=== PATIENT | male | born 1950 | race Caucasian/White ===

== ENCOUNTER → 2019-09-19 | Outpatient (CLI) | payer OTHER ==
[~2019-09-19] MED LIST: COLACE50 MG PO; COMPAZINE 5MG TA5 MG PO; COUMADIN; COUMADIN 5MG5 MG/TAB PO; COUMADIN 77.5 MG/TAB PO; FERROUS SU325 MG/TAB PO; LIORESAL20 MG PO; LOPRESSOR 225 MG/TAB PO; MAGIC MOUTH PO; METOPROLOL SUCC25 MG PO; NEXIUM 40MG40 MG PO; NORCOELIX PO; PRILOSEC10 MG PO; PROZAC 20MG20 MG PO; TYLENOL 500MG500 MG PO; VALIUM 5MG T5 MG/TAB PO; VIT B-12; VITAMIN D2000 I1 PO; XANAX 0.5MG0.5 MG PO; ZOFRAN8 MG PO
[2019-09-19 12:39] LABS: INR 2.3 (0.8-3.0)
== END ==
LOC: COL.LAB 12:17
DX: Z95.2 Presence of prosthetic heart valve (principal)

== ENCOUNTER 2022-04-28 10:40 | Observation (INO) | payer OTHER ==
[~2022-04-28] VITALS: Ht 175.3 cm; Wt 58.3 kg
[2022-04-28 12:25] LABS: BASO # 0.1 K/mm3 (0.0-0.2); BASO % 1.2 % (0.0-2.0); EOS # 0.3 K/mm3 (0.0-0.7); EOS % 3.2 % (0.0-4.0); HEMATOCRIT 40.4 % (42.0-52.0); HEMOGLOBIN 13.1 g/dl (13.5-18.0); INR 1.3 (0.8-3.0); LYMPH # 1.4 K/mm3 (1.2-3.4); LYMPH % 18.4 % (20.0-51.0); MEAN CELL VOLUME 93 fl (80.0-100.0); MEAN CORPUSCULAR HEMOGLOBIN 30 pg (27-31); MEAN CORPUSCULAR HGB CONC 32 g/dl (33.0-37.0); MEAN PLATELET VOLUME 9.6 fl (7.4-10.4); MONO # 0.9 K/mm3 (0.1-0.6); MONO % 11.7 % (1.7-9.3); PLATELET COUNT 178 K/mm3 (130-400); PROTHROMBIN TIME 15.4 SECONDS (9.7-12.8); RED BLOOD COUNT 4.35 M/mm3 (4.20-5.60); REDCELL DISTRIBUTION WIDTH-CV 13.5 % (11.5-14.5)
[2022-04-28 12:34] LABS: CALCIUM 9.6 mg/dL (8.4-10.2); CREATININE, serum 1.18 mg/dL (0.72-1.25); MAGNESIUM 2.2 mg/dL (1.6-2.6); PHOSPHOROUS 2.4 mg/dL (2.3-4.7)
[2022-04-28 12:40] LABS: TROPONIN-I 0.015 ng/mL (0.00-0.033)
[2022-04-28 17:21] VITALS: BP 156/102; PULSE 89; TEMP 98.5
[2022-04-28] MEDS ORDERED: LIPITOR20 MG PO (17:34)
[2022-04-28] MEDS ORDERED: PROZAC 20MG20 MG PO (17:35)
[2022-04-28] MEDS ORDERED: MELATONIN3 M1 PO (17:36)
[2022-04-28] MEDS ORDERED: TOPROL XL 50MG50 MG PO (17:37)
[2022-04-28] MEDS ORDERED: COUMADIN 5MG5 MG/TAB PO (17:38)
[2022-04-28 17:47] VITALS: BP 127/99; PULSE 90; TEMP 97.9
[2022-04-28 18:28] LABS: PARTIAL THROMBOPLASTIN TIME 33.1 SECONDS (26.0-37.0)
--- NOTE | 2022-04-28 19:25 | NUR ---
PT ARRIVED TO UNIT AT APPROX 1800. PT IS A/O X 4. ADMISSION ASSESSMENT AND INTAKE COMPLETED. ORIENTATION PROVIDED TO ROOM/UNIT. PT VERBALIZED UNDERSTANDING. HOME MEDS PLACED IN BIN IN MED ROOM - PHARMACY NOTIFIED AND WILL PICK THESE UP. PT DENIES FURTHER NEEDS AT THIS TIME. CALL LIGHT IS WITHIN HIS REACH
[2022-04-28 19:46] VITALS: BP 97/64; PULSE 94; TEMP 97.9
--- NOTE | 2022-04-28 21:53 | NUR ---
PT A&O. PLEASANT AND COOPERATIVE. HEPARIN GTT INTFUSING TO RT F/A. NEXT HEP XA 0110. PT AWARE. PT ON FALL PRECAUTION. ASSISTED TO BR. PT C/O A LITTLE DIZZY. BACK TO BED. NO NEEDS AT THIS TIME.
[2022-04-29] VITALS (7 sets, daily range): BP systolic 132–164; BP diastolic 75–122; PULSE 87–103; TEMP 97.9–98.5
[2022-04-29 06:17] LABS: BASO # 0.1 K/mm3 (0.0-0.2); BASO % 1.1 % (0.0-2.0); EOS # 0.4 K/mm3 (0.0-0.7); EOS % 5.5 % (0.0-4.0); GRAN # 4.3 K/mm3 (1.4-6.5); GRAN % 59.4 % (42.2-75.2); HEMATOCRIT 40.2 % (42.0-52.0); HEMOGLOBIN 13.1 g/dl (13.5-18.0); LYMPH # 1.8 K/mm3 (1.2-3.4); LYMPH % 24.6 % (20.0-51.0); MEAN CELL VOLUME 92 fl (80.0-100.0); MEAN CORPUSCULAR HEMOGLOBIN 30 pg (27-31); MEAN CORPUSCULAR HGB CONC 33 g/dl (33.0-37.0); MEAN PLATELET VOLUME 10.1 fl (7.4-10.4); MONO # 0.7 K/mm3 (0.1-0.6); MONO % 9.1 % (1.7-9.3); PLATELET COUNT 174 K/mm3 (130-400); RED BLOOD COUNT 4.38 M/mm3 (4.20-5.60); REDCELL DISTRIBUTION WIDTH-CV 13.6 % (11.5-14.5)
[2022-04-29 06:42] LABS: CALCIUM 9.5 mg/dL (8.4-10.2); CREATININE, serum 0.96 mg/dL (0.72-1.25); INR 1.4 (0.8-3.0); MAGNESIUM 2.2 mg/dL (1.6-2.6); PROTHROMBIN TIME 16.3 SECONDS (9.7-12.8)
--- NOTE | 2022-04-29 07:04 | NUR ---
Shift report received from night supervisor RN Salma. Pt. resting in left side lying position. Remains on tele. Remains on heparin drip. Call light is within his reach
--- NOTE | 2022-04-29 09:45 | NUR ---
Initial visit; Patient thanked Deburrer for looking in on him and offering God's blessings. Patient states he goes to the [facility] often for his health but came here as he is having some health issues. He hopes he can go home soon as he feeds six of his own cats and about 10 feral cats to keep them from getting ran over and dying of thirst. Deburrer thanked him for helping God's creatures and wished him good health.
--- NOTE | 2022-04-29 12:50 | NUR ---
sitting up in bed eating lunch, bedside shift report received from KYLIE Young, heparin infusing at 10.5ml
--- NOTE | 2022-04-29 12:59 | NUR ---
bee worker met with patient to complete intake and discuss discharge plan. Patient reports that he lives at home alone in [place]. Patient's in December. Patient in fully independent with his ADL's and does not utilize any DME or home oxygen. PCP is the [facility] and he belongs to [facility]. [facility]. Patient reports that he doesn't have a DPOA-HC established but does have a son who lives in [place] , Kevin Allie ([phone]). Patient is planning on returning home once medically ready. Discharge plan; Home
--- NOTE | 2022-04-29 13:52 | NUR ---
therapist in to work with patient, came to desk and informed this nurse patient felt like he was becoming lightheaded again
--- NOTE | 2022-04-29 14:05 | NUR ---
AUTOMOTIVE WHOLESALE PARTS ADVISOR calling nurse for help. Pt noted to be trembling upon entering his room. AUTOMOTIVE WHOLESALE PARTS ADVISOR reporting that patient began shaking while patient and AUTOMOTIVE WHOLESALE PARTS ADVISOR were standing at the sink. BS 159. BP: 160/97, HR 114. Pt. reports that he has had this type of episode in yesterday prior to his visit at the ED. Pt. assisted back to bed. Charge nurse notified
--- NOTE | 2022-04-29 14:12 | NUR ---
up to sink to brush his teeth with JUAN MANUEL, started feeling like he was going to pass out, states has an odd feeling that starts in his neck and goes up and into head, then began to shake, JUAN MANUEL was with the patient entire time, assisted him into WC and Hannah RN also came to room, blood sugar 159, BP 160/97, p 98, r 18, O2 sat 98%, returned to bed and then feels better
--- NOTE | 2022-04-29 14:17 | NUR ---
Dr Betancourt notified of patient's episode, no new orders
--- NOTE | 2022-04-29 14:57 | NUR ---
in bed talking on phone
--- NOTE | 2022-04-29 16:06 | NUR ---
SW met with patient per request. Patient asks if there was a company that would be able to go in and take care of his cat while he is here. Patient has no family around. He does have a neighbor that can tend to them but doesn't have his number. Asked if i could call the park human resources officer and try and get ahold of the neighbor. Attempt made and was unsuccessul. Informed the patient that the local animal [facility] do not provide this type of service.
--- NOTE | 2022-04-29 17:57 | NUR ---
resting in bed without c/os
--- NOTE | 2022-04-29 18:30 | NUR ---
SHIFT REPORT RECIEVED FROM KATHIA ESPINAL. PT RESTING IN BED. DENIES DIZZINESS. CALL LIGHT IN REACH. BED ALARM ON.
--- NOTE | 2022-04-29 18:41 | NUR ---
bedside shift report given to KYLIE Wagoner
--- NOTE | 2022-04-29 20:52 | NUR ---
PT RESTING IN BED. DENIES DIZZINESS. PT REPORTS EPISODES OCCUR MORE WHEN UP AMB. HEP GTT INFUSING AT 10.5ML/HR. NEXT HEP XA IS IN AM. PT VERBALIZES NO NEEDS AT THIS TIME.
--- NOTE | 2022-04-29 23:34 | NUR ---
DULCOLAX SUPP GIVEN TO PT FOR C/O CONSTIPATION.
[2022-04-30 00:01] VITALS: BP 159/99; PULSE 87; TEMP 98
--- NOTE | 2022-04-30 01:34 | NUR ---
PT REPORTS BM AFTER SUPP.
[2022-04-30 03:10] VITALS: BP 108/74; PULSE 77; TEMP 98.2
[2022-04-30 06:58] LABS: INR 2.1 (0.8-3.0); PROTHROMBIN TIME 24.7 SECONDS (9.7-12.8)
[2022-04-30 08:00] VITALS: BP 140/95; PULSE 84; TEMP 97.5
[2022-04-30] MEDS ORDERED: LOVENOX 6060 MG/0.6 SQ (08:48)
--- NOTE | 2022-04-30 12:49 | NUR ---
IV DISCONTINUED. WATCHED PATIENT SELF ADMINISTER LOVENOX INJECTION CORRECTLY. ALL DISCHARGE INSTRUCTIONS/EDUCATION GIVEN TO PATIENTS. PATIENT LEFT IN STABLE CONDITION AT 10:40 AM.
== END 2022-04-30 10:40 | disposition home or self-care (01) ==
LOC: COL.ER 10:40 → SURG 15:48
PROVIDERS: Emergency Medicine; Internal Medicine; ADMIT Internal Medicine
DX: R55 Syncope and collapse (principal); I50.30 Unspecified diastolic (congestive) heart failure; D68.8 Other specified coagulation defects; Z66 Do not resuscitate; I08.1 Rheumatic disorders of both mitral and tricuspid valves; I25.10 Atherosclerotic heart disease of native coronary artery without angina pectoris; I49.9 Cardiac arrhythmia, unspecified; Z79.01 Long term (current) use of anticoagulants; Z85.810 Personal history of malignant neoplasm of tongue; Z95.2 Presence of prosthetic heart valve
CPT/HCPCS: G0378; J1644; J1650

== ENCOUNTER → 2022-05-05 | Emergency (ER) | payer OTHER ==
[~2022-05-05] MED LIST changes: +LIPITOR20 MG PO; +LOVENOX 6060 MG/0.6 SQ; +MELATONIN3 M1 PO; +TOPROL XL 50MG50 MG PO
== END ==
LOC: COL.ER 10:40
DX: R69 Illness, unspecified (principal)

== ENCOUNTER → 2022-05-05 | Outpatient (CLI) | payer OTHER ==
[2022-05-05 12:13] LABS: INR 1.1 (0.8-3.0); PROTHROMBIN TIME 13.1 SECONDS (9.7-12.8)
== END ==
LOC: COL.LAB 11:27
DX: Z95.2 Presence of prosthetic heart valve (principal)

== ENCOUNTER → 2022-05-20 | Outpatient (CLI) | payer OTHER ==
[2022-05-20 09:06] LABS: INR 1.8 (0.8-3.0); PROTHROMBIN TIME 20.6 SECONDS (9.7-12.8)
== END ==
LOC: COL.LAB 08:32
DX: Z95.2 Presence of prosthetic heart valve (principal)

== ENCOUNTER → 2022-06-10 | Outpatient (CLI) | payer OTHER ==
[2022-06-10 08:11] LABS: INR 1.9 (0.8-3.0); PROTHROMBIN TIME 22.2 SECONDS (9.7-12.8)
== END ==
LOC: COL.LAB 07:24
DX: Z95.2 Presence of prosthetic heart valve (principal)

== ENCOUNTER → 2022-06-24 | Outpatient (CLI) | payer OTHER ==
[~2022-06-24] MED LIST changes: +DESYREL 100MG100 MG PO; +FERROUSAL325 MG PO; +FLORINEF ACETA0.1 MG PO; +MASON NATURAL2000 IU PO; +MULTAQ400 MG PO; +PRILOSEC 20MG20 MG PO; -VITAMIN D2000 I1 PO; +VTAMINC250TA PO
[2022-06-24 10:44] LABS: INR 1.9 (0.8-3.0); PROTHROMBIN TIME 21.9 SECONDS (9.7-12.8)
== END ==
LOC: COL.LAB 10:17
DX: Z95.2 Presence of prosthetic heart valve (principal)

== ENCOUNTER → 2022-08-20 | Outpatient (CLI) | payer OTHER ==
[2022-08-20 12:08] LABS: INR 1.4 (0.8-3.0); PROTHROMBIN TIME 15.8 SECONDS (9.7-12.8)
== END ==
LOC: COL.LAB 11:25
DX: Z95.2 Presence of prosthetic heart valve (principal)

== ENCOUNTER → 2022-09-03 | Outpatient (CLI) | payer OTHER ==
[2022-09-03 14:35] LABS: INR 1.4 (0.8-3.0); PROTHROMBIN TIME 15.6 SECONDS (9.7-12.8)
== END ==
LOC: COL.LAB 14:00
DX: Z95.2 Presence of prosthetic heart valve (principal)

== ENCOUNTER → 2022-09-09 | Outpatient (CLI) | payer OTHER ==
[2022-09-09 13:14] LABS: INR 2.2 (0.8-3.0); PROTHROMBIN TIME 25.8 SECONDS (9.7-12.8)
== END ==
LOC: COL.LAB 11:51
DX: Z51.81 Encounter for therapeutic drug level monitoring (principal); Z95.2 Presence of prosthetic heart valve

== ENCOUNTER → 2023-02-28 | Outpatient (CLI) | payer OTHER ==
[2023-02-28 09:17] LABS: INR 1.9 (0.8-3.0); PROTHROMBIN TIME 22.1 SECONDS (9.7-12.8)
== END ==
LOC: COL.LAB 08:21
DX: Z95.2 Presence of prosthetic heart valve (principal)